=== PATIENT | female | born 1990 | race Caucasian/White ===

== ENCOUNTER 2019-12-21 20:14 | Emergency (ER) | payer MEDICAID ==
[~2019-12-21] VITALS: Ht 154.9 cm; Wt 74.8 kg
[2019-12-21 20:20] VITALS: BP 135/90
--- NOTE | 2019-12-21 20:20 | NUR ---
TO BED # 01 AMBULATORY
--- NOTE | 2019-12-21 20:35 | NUR ---
PLACED IN BED 1. HERE FOR ABDOMINAL PAIN (EPIGASTRIC) DESCRIBED BURNING,RADIATING TO THE LOWER ABDOMEN. ALSO COMPLAINS OF URINARY FREQUENCY AND BURNING. DENIES FEVER,VOMITING,DIARRHEA.
--- NOTE | 2019-12-21 20:45 | NUR ---
URINE HCG AND DIPSTICK DONE. RESULT SHOWN TO LENIN.
--- NOTE | 2019-12-21 21:07 | NUR ---
DISCHARGED STABLE. PRESCRIPTION,VERBAL AND WRITTEN AFTERCARE INSTRUCTIONS GIVEN. VERBALIZED UNDERSTANDING. LEFT AMBULATORY WITH STABLE GAIT.
== END 2019-12-21 21:07 | disposition home or self-care (01) ==
LOC: MED 20:14
DX: R10.13 Epigastric pain (principal); F17.210 Nicotine dependence, cigarettes, uncomplicated
CPT/HCPCS: 81002; 81025; 99282

== ENCOUNTER 2019-12-28 15:14 | Emergency (ER) | payer MEDICAID ==
[~2019-12-28] VITALS: Ht 154.9 cm; Wt 72.6 kg
[2019-12-28 15:26] VITALS: BP 129/88
--- NOTE | 2019-12-28 15:31 | NUR ---
PT TRIAGED, SENT BACK TO LOBBY AWAITING FOR BED
[2019-12-28] MEDS ORDERED: NACL 0.9% 1,000 ML IV SCH (15:39)
[2019-12-28] MEDS ORDERED: KETOROLAC 30 MG/ML VIAL IVP ONE (15:40)
[2019-12-28] MEDS ORDERED: ONDANSETRON 4 MG/2 ML VIAL IVP ONE (15:40)
--- NOTE | 2019-12-28 15:40 | NUR ---
PT AMBULATED TO BED
[2019-12-28 16:08] LABS: BASOPHILS # (AUTO) 0.1 K/uL (0.00-0.22); BASOPHILS % (AUTO) 0.5 % (0.0-2.0); EOSINOPHILS % (AUTO) 0.2 % (0.0-4.0); HEMATOCRIT 38.2 % (36-48); HEMOGLOBIN 13.2 g/dL (12.0-16.0); LYMPHOCYTES # (AUTO) 1.6 K/uL (2.5-16.5); LYMPHOCYTES % (AUTO) 11.4 % (20.5-51.1); MEAN CORPUSCULAR HEMOGLOBIN 29 pg (27-31); MEAN CORPUSCULAR HGB CONC 35 g/dL (33-37); MEAN CORPUSCULAR VOLUME 84.9 fL (80-94); MONOCYTES # (AUTO) 0.9 K/uL (0.8-1.0); MONOCYTES % (AUTO) 6.2 % (1.7-9.3); NEUTROPHILS # (AUTO) 11.4 K/uL (1.8-7.7); NEUTROPHILS % (AUTO) 81.7 % (42.2-75.2); PLATELET COUNT (AUTO) 309 K/uL (140-450); RED CELL DISTRIBUTION WIDTH 11.9 % (11.6-13.7); WHITE BLOOD COUNT (AUTO) 13.9 K/uL (4.8-10.8)
[2019-12-28 16:14] LABS: APPEARANCE,URINE CLEAR (CLEAR); BILIRUBIN,URINE NEGATIVE (NEGATIVE); BLOOD, URINE TRACE-I (NEGATIVE); COLOR,URINE YELLOW (YELLOW); LEUKOCYTE ESTERASE ,URINE NEGATIVE (NEGATIVE); NITRITE, URINE NEGATIVE (NEGATIVE); UGLUCOSE NEGATIVE (NEGATIVE)
[2019-12-28 16:25] LABS: WBC,URINE 0-5 /HPF (0-5)
--- NOTE | 2019-12-28 16:30 | NUR ---
C/O R SIDE ABD PAIN, PRIMARILY TO LOWER RIGHT ABDOMEN 8/10 X1 WEEK ACCOMPANIED BY N/V. ABD SOFT/FLAT/TENDER TO PALPATION ON R SIDE. LBM TODAY, PT REPORTS OCCASIONAL CONSTIPATION. BOWEL SOUNDS PRESENT X4. BED IN LOW POSITION, SIDE RAIL UP X1. PT DENIES DIARRHEA/FEVER.
[2019-12-28 16:34] LABS: ALBUMIN 3.6 g/dL (3.4-5.0); ANION GAP 6.5 (8-16); CARBON DIOXIDE 32.3 mmol/L (21-32); CREATININE 0.8 mg/dL (0.6-1.3); POTASSIUM 3.8 mmol/L (3.5-5.1); TOTAL BILIRUBIN 0.8 mg/dL (0.0-1.0)
--- NOTE | 2019-12-28 16:45 | NUR ---
PT RETURNED FROM CT VIA ER BED
--- NOTE | 2019-12-28 17:10 | NUR ---
ERMD EVALUATING PT AT BEDSIDE
[2019-12-28] MEDS ORDERED: MORPHINE SULFATE 4 MG/ML SYR IVP ONE ×2 (17:15→20:10)
[2019-12-28] MEDS ORDERED: PIPERACILLIN/TAZOBACTAM 3.375 GM in DEXTROSE 5% 50 ML IV ONE (17:15)
[2019-12-28] MEDS ORDERED: PIPERACILLIN/TAZOBACTAM 3.375 GM VIAL IV ONE (18:15)
--- NOTE | 2019-12-28 20:09 | NUR ---
CALLED [facility] AND SPOKE TO REJI TO GIVE REPORT BUT REJI SAID UNABLE TO GET REPORT AT THIS MOMENT THAT HE'LL GIVE ME A CALL BACK FOR REPORT.
[2019-12-28] MEDS ORDERED: NACL 0.9% 1,000 ML IV ONE (20:10)
[2019-12-28 20:23] VITALS: BP 104/65
--- NOTE | 2019-12-28 20:23 | NUR ---
Patient to be transferred to [facility]. Is being transferred due to INSURANCE REQUEST. Receiving facility has accepting physician and available space. ER physician has signed transfer form. Patient or responsible libertarian has agreed to transfer and signed form. Patient belongings inventoried and will be sent with patient. Copy of nursing notes, lab reports, EKG, Physicians Orders and X-rays to be sent with patient. QUENTIN MENDOZA at receiving facility SAID HE'LL CALL BACK FOR REPORT. [facility] ambulance service has been called for transfer. ETA is 25MIN.
--- NOTE | 2019-12-28 20:48 | NUR ---
QUENTIN MENDOZA FROM [facility] CALLED BACK. GAVE REPORT AND TOLD THEM PT IS ON THERE WAY TO THERE FACILITY. ALL QUESTIONS AND CONCERNS ANSWERED.
== END 2019-12-28 20:23 | disposition short-term general hospital (02) ==
LOC: MED 15:14
DX: K35.80 Unspecified acute appendicitis (principal); R11.2 Nausea with vomiting, unspecified; F17.200 Nicotine dependence, unspecified, uncomplicated; Z98.890 Other specified postprocedural states
CPT/HCPCS: 36415; 74176; 80053; 81001; 81025; 83690; 85025; 96361; 96365; 96375; 96376; 99284; J1885; J2270; J2405; J2543; J7030

== ENCOUNTER 2020-01-24 15:05 | Emergency (ER) | payer MEDICAID ==
[~2020-01-24] VITALS: Ht 154.9 cm; Wt 72.7 kg
[2020-01-24 15:07] VITALS: BP 137/76
[2020-01-24 16:23] LABS: APPEARANCE,URINE CLEAR (CLEAR); BILIRUBIN,URINE NEGATIVE (NEGATIVE); BLOOD, URINE NEGATIVE (NEGATIVE); COLOR,URINE YELLOW (YELLOW); LEUKOCYTE ESTERASE ,URINE NEGATIVE (NEGATIVE); NITRITE, URINE NEGATIVE (NEGATIVE); PH,URINE 6.5 (5.0-9.0); UGLUCOSE NEGATIVE (NEGATIVE)
[2020-01-24 19:11] VITALS: BP 133/80
== END 2020-01-24 19:11 | disposition home or self-care (01) ==
LOC: MED 15:05
DX: N83.201 Unspecified ovarian cyst, right side (principal); Z90.49 Acquired absence of other specified parts of digestive tract
CPT/HCPCS: 76856; 81003; 81025; 99285

== ENCOUNTER 2020-02-16 15:18 | Emergency (ER) | payer MEDICAID ==
[~2020-02-16] VITALS: Ht 154.9 cm; Wt 73.5 kg
[2020-02-16 15:37] VITALS: BP 129/61
--- NOTE | 2020-02-16 15:50 | NUR ---
29 Y/O FEMALE FROM HOME C/O LOWER BACK PAIN RADIATING TO RT SHOULDER X 3 WKS. PT STATES 10/10 ACHING PAIN. DENIES TRAUMA/INJURY. DENIES URINARY SYMPTOMS. LAST BM WAS THIS MORNING OF NORMAL CONSISTENCY. HOB ELEVATED, PT POSITIONED FOR COMFORT. X 1 SIDE RAIL RAISED. VSS MEDHX: SCIATICA ALLERGIES: NKA
--- NOTE | 2020-02-16 15:52 | NUR ---
PT AMBULATED TO RESTROOM AND URINE COLLECTED.
[2020-02-16] MEDS ORDERED: KETOROLAC 30 MG/ML VIAL IM ONE (16:00)
--- NOTE | 2020-02-16 16:11 | NUR ---
PT TO CT VIA WHEELCHAIR
[2020-02-16] MEDS ORDERED: NACL 0.9% 1,000 ML IV ONE (16:55)
[2020-02-16] MEDS ORDERED: MORPHINE SULFATE 4 MG/ML SYR IVP ONE ×2 (16:55→19:25)
--- NOTE | 2020-02-16 17:05 | NUR ---
20G IV PLACED TO LT AC, LABS AND BLOOD CULTURES DRAWN AT THIS TIME. PT TOLERATED WELL
[2020-02-16 17:30] LABS: BASOPHILS # (AUTO) 0.1 K/uL (0.00-0.22); BASOPHILS % (AUTO) 0.6 % (0.0-2.0); EOSINOPHILS # (AUTO) 0.1 K/uL (0-0.4); EOSINOPHILS % (AUTO) 0.7 % (0.0-4.0); HEMATOCRIT 35.3 % (36-48); HEMOGLOBIN 12.1 g/dL (12.0-16.0); LYMPHOCYTES # (AUTO) 1.4 K/uL (2.5-16.5); LYMPHOCYTES % (AUTO) 14.5 % (20.5-51.1); MEAN CORPUSCULAR HEMOGLOBIN 29 pg (27-31); MEAN CORPUSCULAR HGB CONC 34 g/dL (33-37); MEAN CORPUSCULAR VOLUME 85.9 fL (80-94); MONOCYTES # (AUTO) 0.5 K/uL (0.8-1.0); MONOCYTES % (AUTO) 5.4 % (1.7-9.3); NEUTROPHILS # (AUTO) 7.4 K/uL (1.8-7.7); NEUTROPHILS % (AUTO) 78.8 % (42.2-75.2); PLATELET COUNT (AUTO) 363 K/uL (140-450); RED BLOOD CELL COUNT(AUTO) 4.11 MIL/uL (4.20-5.40); WHITE BLOOD COUNT (AUTO) 9.4 K/uL (4.8-10.8)
[2020-02-16 17:45] LABS: PROTHROMBIN TIME 9.6 secs (10.8-13.4)
[2020-02-16 17:51] LABS: ALBUMIN 3.2 g/dL (3.4-5.0); CARBON DIOXIDE 30.3 mmol/L (21-32); CREATININE 0.7 mg/dL (0.6-1.3); POTASSIUM 4.1 mmol/L (3.5-5.1); TOTAL BILIRUBIN 0.4 mg/dL (0.0-1.0)
[2020-02-16] MEDS ORDERED: PIPERACILLIN/TAZOBACTAM 3.375 GM in DEXTROSE 5% 50 ML IV ONE (18:00)
[2020-02-16 18:07] LABS: APPEARANCE,URINE CLEAR (CLEAR); BILIRUBIN,URINE NEGATIVE (NEGATIVE); BLOOD, URINE NEGATIVE (NEGATIVE); COLOR,URINE YELLOW (YELLOW); LEUKOCYTE ESTERASE ,URINE NEGATIVE (NEGATIVE); NITRITE, URINE NEGATIVE (NEGATIVE); PH,URINE 7.5 (5.0-9.0); UGLUCOSE NEGATIVE (NEGATIVE)
[2020-02-16 18:16] LABS: ANION GAP 11.9 (8-16)
[2020-02-16 18:23] LABS: BARBITURATE, URINE NEGATIVE ng/ml (NEG <=200); BENZODIAZEPINE, URINE NEGATIVE ng/mL (NEG <=200); CANNABINOID, URINE NEGATIVE ng/mL (NEG <=50); COCAINE, URINE NEGATIVE ng/mL (NEG <=300); OPIATE, URINE POSITIVE ng/mL (NEG <=2000); PHENCYCLIDINE SCREEN,URINE NEGATIVE ng/mL (NEG <=25)
[2020-02-16] MEDS ORDERED: PIPERACILLIN/TAZOBACTAM 3.375 GM VIAL IV ONE (18:44)
[2020-02-16] MEDS ORDERED: GABA300C PO (18:59)
[2020-02-16] MEDS ORDERED: IBUP-1842 PO (18:59)
[2020-02-16] MEDS ORDERED: CHOL200074 PO (18:59)
[2020-02-16] MEDS ORDERED: BUPR-160 PO (18:59)
[2020-02-16] MEDS ORDERED: CYCL10TA36 PO (18:59)
[2020-02-16] MEDS ORDERED: LAM200 PO (18:59)
--- NOTE | 2020-02-16 19:04 | NUR ---
PT RESTING COMFORTABLY IN BED. VSS. IVPB INFUSING, PT TOLERATING WELL. BLANKET PROVIDED. PT REQUESTING PAIN MEDICATION. PT MADE AWARE THAT DR. PEDRAZA IS IN A PROCEDURE AND WILL BE NOTIFIED ONCE SHE IS DONE.
--- NOTE | 2020-02-16 19:30 | NUR ---
chart reviewed, resumed care of patient
[2020-02-16] MEDS ORDERED: metroNIDAZOLE 500 MG/NS PREMIX 100 ML IV ONE (19:50)
--- NOTE | 2020-02-16 19:50 | NUR ---
PT REPORTS RELIEF WITH IV MORPHINE. RATES PAIN AT 3/10.
--- NOTE | 2020-02-16 20:04 | NUR ---
PT AMBULATED TO RESTROOM WITH STEADY GAIT.
--- NOTE | 2020-02-16 21:15 | NUR ---
Patient to be [facility]. Is being transferred due to higher level of care. Receiving facility has accepting physician and available space. ER physician has signed transfer form. Patient or responsible green party has agreed to transfer and signed form. Patient belongings inventoried and will be sent with patient. Copy of nursing notes, lab reports, EKG, Physicians Orders and X-rays to be sent with patient. Report called to QUENTIN Lawler at receiving facility. [facility] ambulance service in route with patient to [facility].
[2020-02-16 21:23] VITALS: BP 118/79
== END 2020-02-16 21:15 | disposition short-term general hospital (02) ==
LOC: MED 15:18
DX: M54.5 Low back pain (principal); M54.30 Sciatica, unspecified side; Z90.49 Acquired absence of other specified parts of digestive tract; Z79.899 Other long term (current) drug therapy
CPT/HCPCS: 36415; 71045; 74176; 74177; 76700; 80053; 80305; 81003; 83605; 85025; 85610; 85730; 87040; 87086; 93005; 96365; 96372; 96375; 96376; 99291; J1885; J2270; J2543; J3490; J7030; Q0092; Q9967; 81002; 99285

== ENCOUNTER 2020-08-26 05:37 | Emergency (ER) | payer MEDICAID ==
[~2020-08-26] VITALS: Ht 154.9 cm; Wt 70.3 kg
[~2020-08-26 05:37] MED LIST: BUPR-160 PO; CHOL200074 PO; CYCL10TA36 PO; GABA300C PO; IBUP-1842 PO; LAM200 PO
--- NOTE | 2020-08-26 05:37 | NUR ---
PT BIB [facility], PREBOOK. TAKEN TO CHAIR
[2020-08-26 05:39] VITALS: BP 147/81
--- NOTE | 2020-08-26 05:43 | NUR ---
ERMD EXAMINING PT
[2020-08-26 05:58] VITALS: BP 147/81
--- NOTE | 2020-08-26 05:58 | NUR ---
PATIENT BIB [facility]. PATIENT EXAMINED BY DR. ESTRELLA. PATIENT MEDICALLY CLEARED AND RELEASED IN CUSTODY IN STABLE CONDITION. ORIGINAL PRE-BOOK FORM GIVEN TO OFFICER GONZALEZ.
== END 2020-08-26 05:58 | disposition home or self-care (01) ==
LOC: MED 05:37
DX: S49.91XA Unspecified injury of right shoulder and upper arm, initial encounter (principal); Z02.89 Encounter for other administrative examinations; Z79.899 Other long term (current) drug therapy; V49.60XA Unspecified car occupant injured in collision with unspecified motor vehicles in traffic accident, initial encounter; Y93.89 Activity, other specified; Y92.89 Other specified places as the place of occurrence of the external cause; Y99.8 Other external cause status
CPT/HCPCS: 99283

== ENCOUNTER 2020-11-27 13:50 | Emergency (ER) | payer MEDICAID ==
[~2020-11-27] VITALS: Ht 154.9 cm; Wt 70.3 kg
[2020-11-27 14:02] VITALS: BP 104/69
--- NOTE | 2020-11-27 14:11 | NUR ---
30YO F C/O NAUSEA, RIGHT LOWER QUADRANT PAIN X 2 WEEKS. DENIES DYSURIA. UPON ASSESSMENT, VSS. ABDOMEN SOFT, NONTENDER. BOWEL SOUNDS ACTIVE ON ALL QUADRANTS. NO ACTIVE VOMITING NOTED. PT POSITIONED COMFORTABLY IN BED. ERMD MADE AWARE OF PT STATUS. PMH: APPENDECTOMY, SCIATICA
[2020-11-27 14:56] LABS: BASOPHILS % (AUTO) 0.9 % (0.0-2.0); EOSINOPHILS % (AUTO) 0.8 % (0.0-4.0); HEMATOCRIT 42.7 % (36-48); HEMOGLOBIN 14.7 g/dL (12.0-16.0); LYMPHOCYTES # (AUTO) 1.6 K/uL (2.5-16.5); LYMPHOCYTES % (AUTO) 29.3 % (20.5-51.1); MEAN CORPUSCULAR HEMOGLOBIN 30 pg (27-31); MEAN CORPUSCULAR HGB CONC 34 g/dL (33-37); MEAN CORPUSCULAR VOLUME 88.1 fL (80-94); MONOCYTES # (AUTO) 0.3 K/uL (0.8-1.0); MONOCYTES % (AUTO) 5.6 % (1.7-9.3); NEUTROPHILS # (AUTO) 3.5 K/uL (1.8-7.7); NEUTROPHILS % (AUTO) 63.4 % (42.2-75.2); PLATELET COUNT (AUTO) 230 K/uL (140-450); RED BLOOD CELL COUNT(AUTO) 4.84 MIL/uL (4.20-5.40); RED CELL DISTRIBUTION WIDTH 12.3 % (11.6-13.7); WHITE BLOOD COUNT (AUTO) 5.5 K/uL (4.8-10.8)
[2020-11-27 14:57] LABS: APPEARANCE,URINE SL CLOUDY (CLEAR); BILIRUBIN,URINE NEGATIVE (NEGATIVE); BLOOD, URINE NEGATIVE (NEGATIVE); COLOR,URINE YELLOW (YELLOW); LEUKOCYTE ESTERASE ,URINE NEGATIVE (NEGATIVE); NITRITE, URINE NEGATIVE (NEGATIVE); PH,URINE 7.5 (5.0-9.0); UGLUCOSE NEGATIVE (NEGATIVE)
[2020-11-27 15:13] LABS: ALBUMIN 4.6 g/dL (3.4-5.0); ANION GAP 9.8 (8-16); CARBON DIOXIDE 27.9 mmol/L (21-32); CREATININE 0.8 mg/dL (0.6-1.3); POTASSIUM 3.7 mmol/L (3.5-5.1); TOTAL BILIRUBIN 0.6 mg/dL (0.0-1.0)
[2020-11-27] MEDS: ACETAMINOPHEN EXTRA STRENGTH 500 MG TAB PO ONE (15:58)
--- NOTE | 2020-11-27 16:24 | NUR ---
WET MOUNT DONE. WALKED TO LAB.
[2020-11-27 18:34] VITALS: BP 112/68
--- NOTE | 2020-11-27 18:34 | NUR ---
Patient discharged with v/s stable. Written and verbal after care instructions given and explained. Patient alert, oriented and verbalized understanding of instructions. Ambulatory with steady gait. All questions addressed prior to discharge. ID band removed. Patient advised to follow up with PMD. Rx of ACETAMINOPHEN & IBUPROFEN given. Patient educated on indication of medication including possible reaction and side effects. Opportunity to ask questions provided and answered.
== END 2020-11-27 18:34 | disposition home or self-care (01) ==
LOC: MED 13:50
DX: N83.201 Unspecified ovarian cyst, right side (principal); R39.15 Urgency of urination; F32.9 Major depressive disorder, single episode, unspecified; M54.30 Sciatica, unspecified side
CPT/HCPCS: 36415; 76830; 76856; 80053; 81003; 81025; 83690; 84702; 85025; 87086; 87210; 99285

== ENCOUNTER 2021-06-11 13:35 | Observation (INO) | payer MEDICAID ==
[~2021-06-11] VITALS: Ht 154.9 cm; Wt 82.6 kg
[2021-06-11 15:18] VITALS: BP 112/60
--- NOTE | 2021-06-11 16:01 | NUR ---
PATIENT HAS BEEN SCREENED AND CATEGORIZED LOW NUTRITION RISK. PATIENT WILL BE SEEN WITHIN 7 DAYS OF ADMISSION. 06/18/[address]
== END 2021-06-11 15:15 | disposition home or self-care (01) ==
LOC: MFCC 13:35
PROVIDERS: ADMIT Obstetrics & Gynecology; ATTEND Obstetrics & Gynecology
DX: O26.892 Other specified pregnancy related conditions, second trimester (principal); R51.9 Headache, unspecified; O36.8120 Decreased fetal movements, second trimester, not applicable or unspecified; Z3A.20 20 weeks gestation of pregnancy
CPT/HCPCS: 59025; 81000; G0378

== ENCOUNTER 2023-04-29 09:16 | Emergency (ER) | payer BC, OTHER ==
[~2023-04-29] VITALS: Ht 154.9 cm; Wt 86.2 kg
[2023-04-29 09:25] VITALS: BP 127/87; PULSE 73; RESP 18; TEMP 97.9; O2SAT 99
[2023-04-29 10:26] LABS: BASOPHILS # (AUTO) 0.1 K/uL (0.00-0.22); BASOPHILS % (AUTO) 1.1 % (0.0-2.0); EOSINOPHILS # (AUTO) 0.1 K/uL (0-0.4); HEMATOCRIT 40.6 % (36-48); HEMOGLOBIN 13.9 g/dL (12.0-16.0); LYMPHOCYTES # (AUTO) 1.2 K/uL (2.5-16.5); LYMPHOCYTES % (AUTO) 23.5 % (20.5-51.1); MEAN CORPUSCULAR HEMOGLOBIN 29 pg (27-31); MEAN CORPUSCULAR HGB CONC 34 g/dL (33-37); MEAN CORPUSCULAR VOLUME 83.4 fL (80-94); MONOCYTES # (AUTO) 0.4 K/uL (0.8-1.0); NEUTROPHILS # (AUTO) 3.4 K/uL (1.8-7.7); NEUTROPHILS % (AUTO) 66.4 % (42.2-75.2); PLATELET COUNT (AUTO) 230 K/uL (140-450); RED BLOOD CELL COUNT(AUTO) 4.87 MIL/uL (4.20-5.40); RED CELL DISTRIBUTION WIDTH 13.6 % (11.6-13.7); WHITE BLOOD COUNT (AUTO) 5.2 K/uL (4.8-10.8)
[2023-04-29 10:44] LABS: ANION GAP -0.3 (8-16); CARBON DIOXIDE 28.5 mmol/L (21-32); CREATININE 0.7 mg/dL (0.6-1.3); POTASSIUM 4.2 mmol/L (3.5-5.1); TOTAL BILIRUBIN 0.8 mg/dL (0.0-1.0)
[2023-04-29] MEDS ORDERED: METH-1681 PO (11:25)
--- NOTE | 2023-04-29 11:37 | NUR ---
Patient discharged with v/s stable. Written and verbal after care instructions given and explained. Patient alert, oriented and verbalized understanding of instructions. Ambulatory with steady gait. All questions addressed prior to discharge. ID band removed. Patient advised to follow up with PMD. Rx of robaxin given. Patient educated on indication of medication including possible reaction and side effects. Opportunity to ask questions provided and answered.
== END 2023-04-29 11:36 | disposition home or self-care (01) ==
LOC: MED 09:16
DX: R25.2 Cramp and spasm (principal); Z79.899 Other long term (current) drug therapy; Z90.49 Acquired absence of other specified parts of digestive tract
CPT/HCPCS: 36415; 80053; 81025; 85025; 99283

== ENCOUNTER 2024-01-24 11:16 | Emergency (ER) | payer BC, MEDICAID ==
[~2024-01-24] VITALS: Ht 157.5 cm; Wt 81.6 kg
[~2024-01-24 11:16] MED LIST changes: +METH-1681 PO
[2024-01-24 12:08] VITALS: BP 136/89; PULSE 93; RESP 16; TEMP 99; O2SAT 92
[2024-01-24 13:28] LABS: BILIRUBIN,URINE NEGATIVE (NEGATIVE); BLOOD, URINE 1+ (NEGATIVE); COLOR,URINE YELLOW (YELLOW); LEUKOCYTE ESTERASE ,URINE 1+ (NEGATIVE); NITRITE, URINE NEGATIVE (NEGATIVE); PH,URINE 6.5 (5.0-9.0); PROTEIN,URINE NEGATIVE (NEGATIVE); UGLUCOSE NEGATIVE (NEGATIVE); UROBILINOGEN,URINE 0.2 EU/dL (0.2 - 1)
[2024-01-24 13:36] LABS: APPEARANCE,URINE HAZY (CLEAR)
[2024-01-24 13:39] LABS: BACTERIA,URINE 0-2 /HPF (None Seen); SQUAMOUS EPITHELIAL CELL,UR >10 (MANY) /LPF (0-3 (FEW)); WBC,URINE >25 (MANY) /HPF (0-5)
[2024-01-24] MEDS ORDERED: IBUP-2213 PO (14:31)
[2024-01-24] MEDS ORDERED: PYR100 PO (14:31)
[2024-01-24] MEDS ORDERED: NITR100C7 PO (14:31)
[2024-01-24 14:38] VITALS: BP 122/77; PULSE 93; RESP 16; TEMP 99; O2SAT 92
== END 2024-01-24 14:38 | disposition home or self-care (01) ==
LOC: MED 11:16
DX: N39.0 Urinary tract infection, site not specified (principal); Z79.899 Other long term (current) drug therapy
CPT/HCPCS: 81001; 81025; 87086; 87186; 87491; 99283